=== PATIENT | male | born 1950 | race Caucasian/White ===

== ENCOUNTER → 2023-08-17 | Outpatient (CLI) | payer MEDICARE ==
[~2023-08-17] MED LIST: PROHANCE 279.3MG/ML 15ML VIAL As Ordered ONE; PROHANCE 279.3MG/ML 5ML VIAL As Ordered ONE
== END ==
LOC: M RAD 12:29
PROVIDERS: ATTEND Urology
DX: Z12.5 Encounter for screening for malignant neoplasm of prostate (principal); K44.9 Diaphragmatic hernia without obstruction or gangrene
CPT/HCPCS: 72197; A9576

== ENCOUNTER 2024-05-04 16:51 | Inpatient (IN) | payer MEDICARE ==
[~2024-05-04] VITALS: Ht 167.6 cm; Wt 78.4 kg
[2024-05-04] MEDS ORDERED: ECOT81TA5 PO (17:01)
[2024-05-04] MEDS ORDERED: OMEP40CA4 PO (17:01)
[2024-05-04] MEDS ORDERED: AMLO1TAB24 PO (17:02)
[2024-05-04] MEDS ORDERED: ATOR40TA75 PO (17:03)
[2024-05-04] MEDS ORDERED: FINA5TAB2 PO (17:03)
[2024-05-04] MEDS ORDERED: LOSA100T46 PO (17:05)
[2024-05-04] MEDS ORDERED: IBUP-1022 PO (17:05)
[2024-05-04] MEDS ORDERED: FLUT1INH2 INH (17:06)
[2024-05-04] MEDS ORDERED: ALBU2.5V10 NEB (17:07)
[2024-05-04] MEDS ORDERED: ISOVUE-370 76% 100ML VIAL As Ordered ONE (17:40)
[2024-05-04 17:50] LABS: VENOUS HCO3 21.7 MMOL/L (23.0-27.0); VENOUS PARTIAL PRESSURE O2 68.8 mmHg (30.0-50.0); VENOUS PH 7.423 UNITS (7.330-7.430); VENOUS STANDARD HCO3 22.7 MMOL/L; VENOUS TOTAL CO2 22.8 MMOL/L (24.0-28.0)
[2024-05-04 17:54] LABS: BASO # 0.1 10^3/uL (0.0-0.2); BASO % 0.6 % (0.0-1.0); EOS # 0.1 10^3/uL (0.0-0.5); EOS % 0.8 % (0.0-3.0); HEMATOCRIT 35.9 % (42.0-52.0); HEMOGLOBIN 12.7 g/dl (13.5-17.5); LYMPH # 2.2 10^3/uL (1.5-5.0); LYMPH % 22.4 % (24.0-44.0); MEAN CORPUSCULAR HEMOGLOBIN 31.3 pg (27.0-33.0); MEAN CORPUSCULAR HGB CONC 35.4 g/dl (32.0-36.5); MEAN CORPUSCULAR VOLUME 88.4 fl (80.0-96.0); MONO # 0.9 10^3/uL (0.0-0.8); MONO % 8.5 % (2.0-8.0); NEUTROPHILS # 6.3 10^3/uL (1.5-8.5); NEUTROPHILS % 62.9 % (36.0-66.0); PLATELET COUNT, AUTOMATED 254 10^3/uL (150-450); RED BLOOD COUNT 4.06 10^6/uL (4.30-6.10)
[2024-05-04 18:06] LABS: INR 0.96; PROTHROMBIN TIME 13.1 SECONDS (12.5-14.5)
[2024-05-04 18:21] LABS: ALKALINE PHOSPHATASE 207 U/L (40-129); ALT/SGPT 64 U/L (7.0-40); AST/SGOT 77 U/L (<34); BILIRUBIN,DIRECT 0.2 MG/DL (<0.4); BILIRUBIN,TOTAL 0.5 MG/DL (0.3-1.2); BLOOD UREA NITROGEN 26 MG/DL (9-23); CALCIUM LEVEL 10.5 MG/DL (8.3-10.6); CARBON DIOXIDE LEVEL 25 MMOL/L (20-31); CHLORIDE LEVEL 101 MMOL/L (98-107); CREATININE FOR GFR 1.08 MG/DL (0.70-1.30); GLOMERULAR FILTRATION RATE > 60.0 (>42); GLUCOSE, FASTING 257 MG/DL (74-106); POTASSIUM SERUM 5.3 MMOL/L (3.5-5.1); SODIUM LEVEL 134 MMOL/L (136-145); TOTAL PROTEIN 6.5 G/DL (5.7-8.2)
[2024-05-04 18:23] LABS: THYROID STIMULATING HORMONE 2.066 uIU/ML (0.55-4.78); THYROXINE (T4) 8.2 UG/DL (4.5-10.9)
[2024-05-04 18:28] LABS: PROCALCITONIN 0.62 ng/ml
[2024-05-04] MEDS: cefTRIAXone SOD 1 GM in DEXTROSE 5% (D5W) ADV/MINI-BAG 50 ML IV ONE (19:00)
[2024-05-04] MEDS ORDERED: THERTAB52 PO (20:42)
[2024-05-04] MEDS ORDERED: MAGN500T8 PO (20:42)
[2024-05-04] MEDS ORDERED: ASCO500T PO (20:42)
[2024-05-04] MEDS ORDERED: VITA200021 PO (20:42)
[2024-05-04] MEDS ORDERED: ALBU8.5H INH (20:42)
[2024-05-04] MEDS ORDERED: HOME MED LIST COMPLETE! XX SCH (20:45)
[2024-05-04] MEDS: DOXYCYCLINE HYCLATE 100 MG in DEXTROSE 5% (D5W) MINI-BAG PLU 100 ML IV ONE (20:53)
[2024-05-04] MEDS ORDERED: MOM 30ML SUSPENSION UDC PO PRN (22:05)
[2024-05-04] MEDS ORDERED: ACETAMINOPHEN 325 MG TAB PO PRN (22:05)
[2024-05-04] MEDS ORDERED: MAALOX 30 ML SUSP *UDC PO PRN (22:05)
[2024-05-04] MEDS: D5W/LR 1,000 ML IV ONE (23:00)
[2024-05-05] VITALS (7 sets, daily range): BP systolic 137–171; BP diastolic 63–83; TEMP 98–98.5; O2SAT 87–97
[2024-05-05 05:47] LABS: HEMATOCRIT 34.1 % (42.0-52.0); HEMOGLOBIN 11.5 g/dl (13.5-17.5); MEAN CORPUSCULAR HEMOGLOBIN 30.3 pg (27.0-33.0); MEAN CORPUSCULAR HGB CONC 33.7 g/dl (32.0-36.5); PLATELET COUNT, AUTOMATED 225 10^3/uL (150-450); RED BLOOD COUNT 3.79 10^6/uL (4.30-6.10); WHITE BLOOD COUNT 8.9 10^3/uL (4.0-10.0)
[2024-05-05 06:18] LABS: PROCALCITONIN 0.54 ng/ml
[2024-05-05 06:21] LABS: ALBUMIN 2.7 G/DL (3.2-5.2); ALKALINE PHOSPHATASE 187 U/L (40-129); ALT/SGPT 58 U/L (7.0-40); AST/SGOT 74 U/L (<34); BILIRUBIN,TOTAL 0.4 MG/DL (0.3-1.2); BLOOD UREA NITROGEN 19 MG/DL (9-23); CALCIUM LEVEL 9.9 MG/DL (8.3-10.6); CARBON DIOXIDE LEVEL 27 MMOL/L (20-31); CHLORIDE LEVEL 103 MMOL/L (98-107); CREATININE FOR GFR 0.96 MG/DL (0.70-1.30); GLOMERULAR FILTRATION RATE > 60.0 (>42); GLUCOSE, FASTING 136 MG/DL (74-106); POTASSIUM SERUM 4.3 MMOL/L (3.5-5.1); SODIUM LEVEL 137 MMOL/L (136-145); TOTAL PROTEIN 5.8 G/DL (5.7-8.2)
[2024-05-05] MEDS ORDERED: oxyCODONE 5MG TAB PO PRN ×2 (08:20→17:05)
[2024-05-05] MEDS: cefTRIAXone SOD 2 GM in DEXTROSE 5% (D5W) ADV/MINI-BAG 50 ML IV SCH (08:46)
[2024-05-05] MEDS: LIDOCAINE 5% (LIDODERM) PATCH TD SCH (08:47)
[2024-05-05] MEDS: DICLOFENAC EPOLAMINE 1.3% PATCH TOP SCH (08:48)
[2024-05-05] MEDS: ACETAMINOPHEN 325 MG TAB PO PRN (09:04)
[2024-05-05] MEDS: DOXYCYCLINE HYCLATE 100 MG in DEXTROSE 5% (D5W) MINI-BAG PLU 100 ML IV SCH (09:31)
[2024-05-05] MEDS ORDERED: LIDOCAINE 2% 100MG/5ML SDV (FOR ANES.) As Ordered ONE (14:41)
[2024-05-05] MEDS ORDERED: propofoL 200 MG/20 ML VIAL As Ordered ONE (14:41)
[2024-05-05] MEDS ORDERED: ROCURONIUM BROMIDE 50MG/5ML VIAL As Ordered ONE (14:45)
[2024-05-05] MEDS ORDERED: ONDANSETRON 4MG 2ML VIAL As Ordered ONE (14:45)
[2024-05-05] MEDS ORDERED: SUGAMMADEX SODIUM 500 MG/5 ML VIAL (BRIDION) As Ordered ONE (14:45)
[2024-05-05] MEDS ORDERED: fentaNYL 100 MCG/2 ML INJECTION As Ordered ONE (14:50)
[2024-05-05] MEDS: LIDOCAINE 1% SDV 30ML VIAL As Ordered ONE (15:25)
[2024-05-05] MEDS: LIDOCAINE 4% TOPICAL SOLN 50 ML BTL As Ordered ONE (15:25)
[2024-05-05] MEDS: THROMBIN 20,000 UNITS KIT As Ordered ONE (15:25)
[2024-05-05] MEDS: LIDOCAINE VISCOUS 2% SOLN 15ML UDC As Ordered ONE (15:25)
[2024-05-05] MEDS: CETACAINE SPRAY 5GM As Ordered ONE (15:50)
[2024-05-05] MEDS: THROMBIN 5,000 UNITS VIAL As Ordered ONE (16:30)
[2024-05-05] MEDS: EPINEPHrine 1MG/10ML SYRINGE 1.5IN As Ordered ONE (16:30)
[2024-05-05] MEDS: LEVALBUTEROL 1.25MG 0.5ML CONCENTRATE NEB INH ONE (17:05)
[2024-05-05] MEDS ORDERED: ONDANSETRON 4MG 2ML VIAL IV PRN (17:05)
[2024-05-05] MEDS ORDERED: fentaNYL 100 MCG/2 ML INJECTION IV PRN (17:05)
[2024-05-05] MEDS: IPRATROPIUM 0.5MG/ALBUTEROL 2.5MG INH SOL UD 3ML (DUONEB) NEB ONE (17:55)
[2024-05-05] MEDS ORDERED: PROHANCE 279.3MG/ML 15ML VIAL As Ordered ONE (19:24)
[2024-05-05] MEDS ORDERED: ALBUTEROL 90 MCG/ACT 8GM HFA INHALER INH PRN (20:25)
[2024-05-05] MEDS: ADVAIR HFA 115/21MCG INHALER INH SCH (20:58)
[2024-05-05] MEDS: ASPIRIN 81MG ENTERIC TABLET PO SCH (21:26)
[2024-05-05] MEDS: DOXYCYCLINE HYCLATE 100MG TABLET PO SCH (21:26)
[2024-05-05] MEDS: ATORVASTATIN 20 MG TAB PO SCH (21:26)
[2024-05-05] MEDS: amLODIPine 5 MG TAB PO SCH (21:29)
[2024-05-05] MEDS: KETOROLAC 30 MG/ML 1ML VIAL IV PRN (21:39)
[2024-05-06 04:36] VITALS: BP 150/58; TEMP 97.5; O2SAT 95
[2024-05-06 06:03] LABS: HEMATOCRIT 33.9 % (42.0-52.0); HEMOGLOBIN 11.6 g/dl (13.5-17.5); MEAN CORPUSCULAR HEMOGLOBIN 30.8 pg (27.0-33.0); MEAN CORPUSCULAR HGB CONC 34.2 g/dl (32.0-36.5); MEAN CORPUSCULAR VOLUME 89.9 fl (80.0-96.0); PLATELET COUNT, AUTOMATED 236 10^3/uL (150-450); RED BLOOD COUNT 3.77 10^6/uL (4.30-6.10); WHITE BLOOD COUNT 11.7 10^3/uL (4.0-10.0)
[2024-05-06 06:30] LABS: ALBUMIN 2.8 G/DL (3.2-5.2); ALKALINE PHOSPHATASE 189 U/L (40-129); ALT/SGPT 54 U/L (7.0-40); AST/SGOT 64 U/L (<34); BILIRUBIN,TOTAL 0.5 MG/DL (0.3-1.2); BLOOD UREA NITROGEN 28 MG/DL (9-23); CALCIUM LEVEL 10.3 MG/DL (8.3-10.6); CARBON DIOXIDE LEVEL 25 MMOL/L (20-31); CHLORIDE LEVEL 102 MMOL/L (98-107); CREATININE FOR GFR 1.18 MG/DL (0.70-1.30); GLOMERULAR FILTRATION RATE > 60.0 (>42); GLUCOSE, FASTING 191 MG/DL (74-106); MAGNESIUM LEVEL 1.7 MG/DL (1.8-2.4); SODIUM LEVEL 135 MMOL/L (136-145)
[2024-05-06] MEDS ORDERED: DEXTROSE 50% 50ML SYRINGE IV PRN (07:10)
[2024-05-06] MEDS ORDERED: GLUCOSE 4 GM CHEW PO PRN (07:10)
[2024-05-06] MEDS ORDERED: GLUCAGON INJ 1MG VIAL SC PRN (07:10)
[2024-05-06 08:02] VITALS: BP 124/64; TEMP 98.1; O2SAT 98
[2024-05-06] MEDS: VITAMIN D 1,000 INTERNATIONAL UNITS TABLET PO SCH (08:11)
[2024-05-06 08:12] VITALS: BP 124/64
[2024-05-06] MEDS: LOSARTAN 50MG TABLET PO SCH (08:12)
[2024-05-06] MEDS: MULTIVITAMINS/MINERALS THERAP 1 TAB PO SCH (08:13)
[2024-05-06] MEDS: ASCORBIC ACID 500 MG TAB PO SCH (08:13)
[2024-05-06] MEDS: OMEPRAZOLE 20MG CAP PO SCH (08:13)
[2024-05-06] MEDS: FINASTERIDE 5MG TAB PO SCH (08:13)
[2024-05-06] MEDS: CEFDINIR 300 MG CAP (OMNICEF) PO SCH (08:13)
[2024-05-06] MEDS: ENOXAPARIN 40MG/0.4ML SYRINGE (J1650 PER 10MG) SC SCH (08:14)
[2024-05-06] MEDS: INSULIN LISPRO (NovoLOG) PER UNIT SC SCH (08:14)
[2024-05-06] MEDS: NS 1,000 ML IV SCH (08:18)
[2024-05-06] MEDS ORDERED: CEFDINIR 300 MG CAP (OMNICEF) PO SCH (09:00)
[2024-05-06] MEDS: FLEET OIL RETENTION ENEMA PR SCH (09:00)
[2024-05-06] MEDS: MAGNESIUM GLUCONATE 500 MG TAB PO SCH (09:42)
[2024-05-06 11:42] LABS: PROCALCITONIN 0.61 ng/ml
[2024-05-06] MEDS: LR 1,000 ML IV ONE (12:41)
[2024-05-06 15:33] VITALS: BP 140/71; TEMP 98.2; O2SAT 97
[2024-05-06] MEDS ORDERED: OXYC-517 PO (16:23)
[2024-05-06] MEDS ORDERED: LIDO5TD TD (16:23)
[2024-05-06] MEDS ORDERED: CEFD300CAP PO (16:23)
[2024-05-06] MEDS ORDERED: DOXY100T PO (16:23)
[2024-05-06] MEDS ORDERED: NARC1SPR NARES (16:30)
[2024-05-06] MEDS ORDERED: INSULIN LISPRO (NovoLOG) PER UNIT SC SCH (21:00)
[2024-05-08] MEDS ORDERED: CELE100C PO (10:45)
== END 2024-05-06 18:00 | disposition home or self-care (01) | DRG 166 ==
LOC: M ED 16:51 → M ED INP 22:04 → M PCU 05-05 03:44
PROVIDERS: ADMIT Student in an Organized Health Care Education/Training Program; ATTEND Student in an Organized Health Care Education/Training Program
PROC: 0BBL4ZX Excision of Left Lung, Percutaneous Endoscopic Approach, Diagnostic (ICD-10-PCS; 2024-05-05)
PROC: BB4BZZZ Ultrasonography of Pleura (ICD-10-PCS; 2024-05-05)
PROC: 07B74ZX Excision of Thorax Lymphatic, Percutaneous Endoscopic Approach, Diagnostic (ICD-10-PCS; principal; 2024-05-05 13:45)
DX: C34.12 Malignant neoplasm of upper lobe, left bronchus or lung (principal); J18.9 Pneumonia, unspecified organism; R04.2 Hemoptysis; C78.7 Secondary malignant neoplasm of liver and intrahepatic bile duct; C79.31 Secondary malignant neoplasm of brain; E87.20 Acidosis, unspecified; E87.1 Hypo-osmolality and hyponatremia; J45.909 Unspecified asthma, uncomplicated; E11.65 Type 2 diabetes mellitus with hyperglycemia; E78.5 Hyperlipidemia, unspecified; K21.9 Gastro-esophageal reflux disease without esophagitis; I10 Essential (primary) hypertension; D64.9 Anemia, unspecified; N40.0 Benign prostatic hyperplasia without lower urinary tract symptoms; Z79.899 Other long term (current) drug therapy; Z79.82 Long term (current) use of aspirin; Z87.891 Personal history of nicotine dependence

== ENCOUNTER 2024-05-21 10:48 | Outpatient (RCR) | payer MEDICARE ==
[~2024-05-21 10:48] MED LIST changes: -LIDOCAINE 1% MDV 20ML VIAL As Ordered ONE; -MIDAZOLAM INJ 2MG/2ML VIAL As Ordered ONE; -NS 1,000 ML IV SCH; -ceFAZolin 2 GM/D5W 50 ML IV BAG As Ordered ONE; -fentaNYL 100 MCG/2 ML INJECTION As Ordered ONE
== END 2024-05-24 ==
LOC: M ONCR 10:48
PROVIDERS: ATTEND General Practice
DX: Z51.0 Encounter for antineoplastic radiation therapy (principal); C34.12 Malignant neoplasm of upper lobe, left bronchus or lung

== ENCOUNTER → 2024-05-21 | Outpatient (CLI) | payer MEDICARE ==
[~2024-05-21] VITALS: Ht 167.6 cm; Wt 78.0 kg
[~2024-05-21] MED LIST changes: +ALBU2.5V10 NEB; +ALBU8.5H INH; +AMLO1TAB24 PO; +ASCO500T PO; +ATOR40TA75 PO; +CEFD300CAP PO; +CELE100C PO; +DOXY100T PO; +ECOT81TA5 PO; +FINA5TAB2 PO; +FLUT1INH2 INH; +IBUP-1022 PO; +LIDO5TD TD; +LIDOCAINE 1% MDV 20ML VIAL As Ordered ONE; +LOSA100T46 PO; +MAGN500T8 PO; +MIDAZOLAM INJ 2MG/2ML VIAL As Ordered ONE; +NARC1SPR NARES; +NS 1,000 ML IV SCH; +OMEP40CA4 PO; +ONDA-282 PO; +OXYC-517 PO; -PROHANCE 279.3MG/ML 15ML VIAL As Ordered ONE; -PROHANCE 279.3MG/ML 5ML VIAL As Ordered ONE; +THERTAB52 PO; +VITA200021 PO; +ceFAZolin 2 GM/D5W 50 ML IV BAG As Ordered ONE; +fentaNYL 100 MCG/2 ML INJECTION As Ordered ONE
[2024-05-21 08:13] VITALS: TEMP 97
[2024-05-21] MEDS: ceFAZolin SOD 2 GM in IV 1 EA IV ONE (08:59)
[2024-05-21 10:35] VITALS: BP 162/78; O2SAT 97
== END ==
LOC: M IRPRO 07:51
PROVIDERS: ATTEND Internal Medicine Hematology & Oncology
DX: C34.90 Malignant neoplasm of unspecified part of unspecified bronchus or lung (principal)
CPT/HCPCS: 36561; 99152; 99153; C1894; J0690; J1642; J2250; J3010

== ENCOUNTER → 2024-06-03 | Outpatient (CLI) | payer MEDICARE, OTHER ==
[~2024-06-03] MED LIST changes: +LIDO30CR18 TOP
== END ==
LOC: M EKG 12:45
PROVIDERS: ATTEND Internal Medicine Hematology & Oncology
DX: R00.2 Palpitations (principal)

== ENCOUNTER 2024-06-09 14:43 | Inpatient (IN) | payer MEDICARE, OTHER ==
[~2024-06-09] VITALS: Ht 170.2 cm; Wt 77.7 kg
[2024-06-09] VITALS (11 sets, daily range): BP systolic 144–181; BP diastolic 71–92; TEMP 97.4–98; O2SAT 97–100
[2024-06-09] MEDS: FILGRASTIM 300MCG 0.5ML SYRINGE **SC ADMINISTRATION ONLY SC ONE (16:21)
[2024-06-09] MEDS: CEFEPIME HCL 2 GM in DEXTROSE 5% (D5W) ADV/MINI-BAG 50 ML IV ONE (16:21)
[2024-06-09] MEDS: PHENAZOPYRIDINE 100 MG TAB PO ONE (16:21)
[2024-06-09] MEDS ORDERED: SODIUM CHLORIDE 0.9% INJ 10 ML SYR IV PRN (16:45)
[2024-06-09] MEDS ORDERED: GLUCAGON INJ 1MG VIAL SC PRN (16:55)
[2024-06-09] MEDS ORDERED: DEXTROSE 50% 50ML SYRINGE IV PRN (16:55)
[2024-06-09] MEDS ORDERED: GLUCOSE 4 GM CHEW PO PRN (16:55)
[2024-06-09] MEDS: oxyCODONE 5MG TAB PO ONE (16:56)
[2024-06-09] MEDS ORDERED: VANCOMYCIN HCL 500 MG in DEXTROSE 5% (D5W) MINI-BAG PLU 100 ML IV SCH (17:05)
[2024-06-09] MEDS ORDERED: oxyCODONE 5MG TAB PO PRN (17:20)
[2024-06-09] MEDS ORDERED: NARC1SPR (17:38)
[2024-06-09] MEDS ORDERED: ONDA-282 PO (17:40)
[2024-06-09] MEDS ORDERED: OXYC-517 PO (17:42)
[2024-06-09] MEDS ORDERED: HOME MED LIST COMPLETE! XX SCH (17:45)
[2024-06-09] MEDS: INSULIN LISPRO (NovoLOG) PER UNIT SC SCH ×2 (17:53→20:54)
[2024-06-09] MEDS ORDERED: ALBUTEROL SULFATE 2.5MG/0.5ML INH NEB SOLN NEB PRN (17:55)
[2024-06-09] MEDS ORDERED: ALBUTEROL 90 MCG/ACT 8GM HFA INHALER INH PRN (17:55)
[2024-06-09] MEDS ORDERED: ONDANSETRON 4MG ORAL DISINTEGRATING TAB PO PRN (17:55)
[2024-06-09] MEDS ORDERED: EMLA CREAM 5GM TUBE (LIDOCAINE/PRILOCAINE) TOP PRN (17:55)
[2024-06-09] MEDS: ADVAIR HFA 115/21MCG INHALER INH SCH (19:47)
[2024-06-09] MEDS ORDERED: VANCOMYCIN 1,250 MG/250 ML IV BAG *LOAD IV ONE (20:00)
[2024-06-09] MEDS: ATORVASTATIN 20 MG TAB PO SCH (21:01)
[2024-06-09] MEDS: ASPIRIN 81MG ENTERIC TABLET PO SCH (21:01)
[2024-06-09] MEDS: SENOKOT S TAB PO SCH (21:01)
[2024-06-09] MEDS: PHENAZOPYRIDINE 100 MG TAB PO SCH (21:01)
[2024-06-09] MEDS: amLODIPine 5 MG TAB PO SCH (21:02)
[2024-06-10] VITALS (8 sets, daily range): BP systolic 136–164; BP diastolic 66–98; TEMP 96.9–98.1; O2SAT 96–99
[2024-06-10] MEDS ORDERED: VANCOMYCIN 1,250 MG/250 ML IV BAG IV SCH ×2 (02:00→12:00)
[2024-06-10] MEDS: CEFEPIME HCL 2 GM in DEXTROSE 5% (D5W) ADV/MINI-BAG 50 ML IV SCH (05:25)
[2024-06-10] MEDS: VANCOMYCIN 1,250 MG/250 ML IV BAG *LOAD IV ONE (06:09)
[2024-06-10 08:36] LABS: BASO % 2.3 % (0.0-1.0); EOS % 2.3 % (0.0-3.0); HEMATOCRIT 22.7 % (42.0-52.0); HEMOGLOBIN 7.7 g/dl (13.5-17.5); LYMPH # 0.4 10^3/uL (1.5-5.0); LYMPH % 81.8 % (24.0-44.0); MEAN CORPUSCULAR HEMOGLOBIN 30.7 pg (27.0-33.0); MEAN CORPUSCULAR HGB CONC 33.9 g/dl (32.0-36.5); MEAN CORPUSCULAR VOLUME 90.4 fl (80.0-96.0); MONO % 4.5 % (2.0-8.0); NEUTROPHILS % 9.1 % (36.0-66.0); RED BLOOD COUNT 2.51 10^6/uL (4.30-6.10)
[2024-06-10 08:40] LABS: WHITE BLOOD COUNT 0.4 10^3/uL (4.0-10.0)
[2024-06-10 08:41] LABS: PLATELET COUNT, AUTOMATED 9 10^3/uL (150-450)
[2024-06-10] MEDS: FILGRASTIM 480 MCG/0.8 ML SYRINGE **SC ADMINISTRATION ONLY SC SCH (09:00)
[2024-06-10 09:05] LABS: ALBUMIN 2.3 G/DL (3.2-5.2); ALKALINE PHOSPHATASE 438 U/L (40-129); ALT/SGPT 82 U/L (7.0-40); AST/SGOT 78 U/L (<34); BILIRUBIN,TOTAL 1.6 MG/DL (0.3-1.2); BLOOD UREA NITROGEN 33 MG/DL (9-23); CALCIUM LEVEL 8.7 MG/DL (8.3-10.6); CARBON DIOXIDE LEVEL 26 MMOL/L (20-31); CHLORIDE LEVEL 101 MMOL/L (98-107); CREATININE FOR GFR 0.98 MG/DL (0.70-1.30); GLOMERULAR FILTRATION RATE > 60.0 (>42); GLUCOSE, FASTING 229 MG/DL (74-106); MAGNESIUM LEVEL 1.6 MG/DL (1.8-2.4); POTASSIUM SERUM 4.4 MMOL/L (3.5-5.1); SODIUM LEVEL 135 MMOL/L (136-145); TOTAL PROTEIN 5.1 G/DL (5.7-8.2)
[2024-06-10] MEDS: OMEPRAZOLE 20MG CAP PO SCH (09:31)
[2024-06-10] MEDS: FINASTERIDE 5MG TAB PO SCH (09:31)
[2024-06-10] MEDS: LOSARTAN 50MG TABLET PO SCH (09:31)
[2024-06-10] MEDS: SODIUM CHLORIDE 0.9% INJ 10 ML SYR IV SCH (09:32)
[2024-06-10] MEDS: MAG SULF 1GM/100ML (MAG RUN) 1 GM in IV 1 EA IV SCH (11:00)
[2024-06-10] MEDS: MAGNESIUM OXIDE 400MG TAB (MAG-OX) PO SCH (12:35)
[2024-06-10] MEDS ORDERED: VANCOMYCIN HCL 750 MG, VIAL MATE ADAPTER 1 EACH in NS 250 ML IV SCH (15:00)
[2024-06-11 04:00] VITALS: BP 153/77; TEMP 97.7; O2SAT 95
[2024-06-11 07:47] LABS: BASO % 2.3 % (0.0-1.0); EOS % 2.3 % (0.0-3.0); LYMPH # 0.4 10^3/uL (1.5-5.0); LYMPH % 79.5 % (24.0-44.0); MEAN CORPUSCULAR HEMOGLOBIN 30.3 pg (27.0-33.0); MEAN CORPUSCULAR HGB CONC 33.3 g/dl (32.0-36.5); MEAN CORPUSCULAR VOLUME 90.9 fl (80.0-96.0); MONO % 6.8 % (2.0-8.0); NEUTROPHILS % 9.1 % (36.0-66.0); RED BLOOD COUNT 2.31 10^6/uL (4.30-6.10)
[2024-06-11 08:07] LABS: ALBUMIN 2.2 G/DL (3.2-5.2); ALKALINE PHOSPHATASE 434 U/L (40-129); ALT/SGPT 68 U/L (7.0-40); AST/SGOT 59 U/L (<34); BILIRUBIN,TOTAL 1.1 MG/DL (0.3-1.2); BLOOD UREA NITROGEN 25 MG/DL (9-23); CALCIUM LEVEL 8.6 MG/DL (8.3-10.6); CARBON DIOXIDE LEVEL 26 MMOL/L (20-31); CHLORIDE LEVEL 100 MMOL/L (98-107); CREATININE FOR GFR 0.91 MG/DL (0.70-1.30); GLOMERULAR FILTRATION RATE > 60.0 (>42); GLUCOSE, FASTING 219 MG/DL (74-106); MAGNESIUM LEVEL 1.8 MG/DL (1.8-2.4); POTASSIUM SERUM 4.3 MMOL/L (3.5-5.1); SODIUM LEVEL 135 MMOL/L (136-145); TOTAL PROTEIN 5.3 G/DL (5.7-8.2)
[2024-06-11 08:08] LABS: PLATELET COUNT, AUTOMATED 10 10^3/uL (150-450); WHITE BLOOD COUNT 0.4 10^3/uL (4.0-10.0)
[2024-06-11 12:00] VITALS: BP 157/81; TEMP 97.9; O2SAT 96
[2024-06-11 19:50] VITALS: BP 156/83; TEMP 97.7; O2SAT 96
[2024-06-11] MEDS: MOM 30ML SUSPENSION UDC PO PRN (21:05)
[2024-06-12] VITALS (16 sets, daily range): BP systolic 121–159; BP diastolic 71–80; TEMP 97.3–97.9; O2SAT 87–98
[2024-06-12 05:55] LABS: BASO % 1.3 % (0.0-1.0); EOS % 1.3 % (0.0-3.0); LYMPH # 0.5 10^3/uL (1.5-5.0); LYMPH % 64.9 % (24.0-44.0); MEAN CORPUSCULAR HEMOGLOBIN 30.5 pg (27.0-33.0); MEAN CORPUSCULAR HGB CONC 33.5 g/dl (32.0-36.5); MEAN CORPUSCULAR VOLUME 91.1 fl (80.0-96.0); MONO # 0.1 10^3/uL (0.0-0.8); MONO % 16.9 % (2.0-8.0); NEUTROPHILS % 10.4 % (36.0-66.0); RED BLOOD COUNT 2.13 10^6/uL (4.30-6.10)
[2024-06-12 05:56] LABS: HEMOGLOBIN 6.5 g/dl (13.5-17.5); NEUTROPHILS # 0.1 10^3/uL (1.5-8.5); PLATELET COUNT, AUTOMATED 7 10^3/uL (150-450); WHITE BLOOD COUNT 0.8 10^3/uL (4.0-10.0)
[2024-06-12 05:57] LABS: HEMATOCRIT 19.4 % (42.0-52.0)
[2024-06-12 06:19] LABS: ALBUMIN 2.2 G/DL (3.2-5.2); ALKALINE PHOSPHATASE 412 U/L (40-129); ALT/SGPT 57 U/L (7.0-40); AST/SGOT 44 U/L (<34); BILIRUBIN,TOTAL 1.1 MG/DL (0.3-1.2); BLOOD UREA NITROGEN 25 MG/DL (9-23); CALCIUM LEVEL 8.4 MG/DL (8.3-10.6); CARBON DIOXIDE LEVEL 27 MMOL/L (20-31); CHLORIDE LEVEL 101 MMOL/L (98-107); CREATININE FOR GFR 1.03 MG/DL (0.70-1.30); GLOMERULAR FILTRATION RATE > 60.0 (>42); GLUCOSE, FASTING 214 MG/DL (74-106); MAGNESIUM LEVEL 1.9 MG/DL (1.8-2.4); POTASSIUM SERUM 4.4 MMOL/L (3.5-5.1); SODIUM LEVEL 137 MMOL/L (136-145); TOTAL PROTEIN 5.2 G/DL (5.7-8.2)
[2024-06-12 20:21] LABS: MEAN CORPUSCULAR HEMOGLOBIN 29.7 pg (27.0-33.0); MEAN CORPUSCULAR HGB CONC 34.1 g/dl (32.0-36.5); MEAN CORPUSCULAR VOLUME 87.1 fl (80.0-96.0); RED BLOOD COUNT 2.86 10^6/uL (4.30-6.10); WHITE BLOOD COUNT 1.2 10^3/uL (4.0-10.0)
[2024-06-12 20:22] LABS: HEMATOCRIT 24.9 % (42.0-52.0); HEMOGLOBIN 8.5 g/dl (13.5-17.5)
[2024-06-12 20:23] LABS: PLATELET COUNT, AUTOMATED 50 10^3/uL (150-450)
[2024-06-12 22:15] LABS: ATYPICAL LYMPH 14 % (0-5); BASOPHILS 1 % (0-1); EOSINOPHILS 3 % (0-3); LYMPHOCYTES 46 % (16-44); METAMYELOCYTES 2 % (0-0); MONOCYTES 9 % (0-5); MYELOCYTES 4 % (0-0); NEUTROPHILS 16 % (28-66); NUCLEATED RED BLOOD CELL 6 % (0-0); PROMYELOCYTES 1 % (0-0)
[2024-06-12 22:18] LABS: ANISOCYTOSIS 1+
[2024-06-12 22:40] LABS: PLATELET ESTIMATE DECREASED (NORMAL)
[2024-06-13 04:10] VITALS: BP 139/69; TEMP 97.9; O2SAT 94
[2024-06-13 05:07] LABS: BASO % 0.6 % (0.0-1.0); EOS % 0.6 % (0.0-3.0); HEMATOCRIT 24.1 % (42.0-52.0); HEMOGLOBIN 8.1 g/dl (13.5-17.5); LYMPH # 0.6 10^3/uL (1.5-5.0); LYMPH % 36.1 % (24.0-44.0); MEAN CORPUSCULAR HEMOGLOBIN 29.3 pg (27.0-33.0); MEAN CORPUSCULAR HGB CONC 33.6 g/dl (32.0-36.5); MEAN CORPUSCULAR VOLUME 87.3 fl (80.0-96.0); MONO # 0.3 10^3/uL (0.0-0.8); MONO % 19.3 % (2.0-8.0); NEUTROPHILS % 35.6 % (36.0-66.0); RED BLOOD COUNT 2.76 10^6/uL (4.30-6.10); WHITE BLOOD COUNT 1.7 10^3/uL (4.0-10.0)
[2024-06-13 05:17] LABS: NEUTROPHILS # 0.6 10^3/uL (1.5-8.5); PLATELET COUNT, AUTOMATED 34 10^3/uL (150-450)
[2024-06-13 05:34] LABS: ALBUMIN 2.2 G/DL (3.2-5.2); ALKALINE PHOSPHATASE 408 U/L (40-129); ALT/SGPT 52 U/L (7.0-40); AST/SGOT 43 U/L (<34); BLOOD UREA NITROGEN 23 MG/DL (9-23); CALCIUM LEVEL 8.4 MG/DL (8.3-10.6); CARBON DIOXIDE LEVEL 24 MMOL/L (20-31); CHLORIDE LEVEL 104 MMOL/L (98-107); CREATININE FOR GFR 0.86 MG/DL (0.70-1.30); GLOMERULAR FILTRATION RATE > 60.0 (>42); GLUCOSE, FASTING 187 MG/DL (74-106); MAGNESIUM LEVEL 1.7 MG/DL (1.8-2.4); POTASSIUM SERUM 4.4 MMOL/L (3.5-5.1); SODIUM LEVEL 137 MMOL/L (136-145)
[2024-06-13] MEDS: MAGNESIUM OXIDE 400MG TAB (MAG-OX) PO ONE (08:25)
[2024-06-13 08:28] VITALS: BP 152/74
== END 2024-06-13 11:15 | disposition home or self-care (01) | DRG 809 ==
LOC: M ED 14:43 → M ED INP 16:21 → M MSPAV 06-10 16:11
PROVIDERS: ADMIT Internal Medicine; ATTEND Internal Medicine
PROC: 30233N1 Transfusion of Nonautologous Red Blood Cells into Peripheral Vein, Percutaneous Approach (ICD-10-PCS; principal; 2024-06-09)
PROC: 30233R1 Transfusion of Nonautologous Platelets into Peripheral Vein, Percutaneous Approach (ICD-10-PCS; 2024-06-09)
DX: D61.810 Antineoplastic chemotherapy induced pancytopenia (principal); C34.02 Malignant neoplasm of left main bronchus; C79.31 Secondary malignant neoplasm of brain; C78.7 Secondary malignant neoplasm of liver and intrahepatic bile duct; E87.1 Hypo-osmolality and hyponatremia; T45.1X5A Adverse effect of antineoplastic and immunosuppressive drugs, initial encounter; E11.9 Type 2 diabetes mellitus without complications; N40.0 Benign prostatic hyperplasia without lower urinary tract symptoms; E78.5 Hyperlipidemia, unspecified; I10 Essential (primary) hypertension; R53.1 Weakness; K21.9 Gastro-esophageal reflux disease without esophagitis; E55.9 Vitamin D deficiency, unspecified; D70.9 Neutropenia, unspecified; R53.83 Other fatigue; K59.09 Other constipation; Z79.82 Long term (current) use of aspirin; Z79.899 Other long term (current) drug therapy; R74.01 Elevation of levels of liver transaminase levels; Z79.84 Long term (current) use of oral hypoglycemic drugs; Z87.891 Personal history of nicotine dependence

== ENCOUNTER → 2024-07-04 | Outpatient (CLI) | payer MEDICARE ==
[~2024-07-04] MED LIST changes: +METF-838; +NARC1SPR
== END ==
LOC: M RAD 11:10
PROVIDERS: ATTEND Physician Assistant
DX: I71.43 Infrarenal abdominal aortic aneurysm, without rupture (principal)

== ENCOUNTER → 2024-07-08 | Outpatient (CLI) | payer MEDICARE | LOC: M ONCM 14:35 | PROVIDERS: ATTEND Dietitian, Registered | DX: Z71.3 Dietary counseling and surveillance (principal); C34.90 Malignant neoplasm of unspecified part of unspecified bronchus or lung; Z68.26 Body mass index [BMI] 26.0-26.9, adult ==

== ENCOUNTER 2024-07-15 20:54 | Inpatient (IN) | payer MEDICARE ==
[~2024-07-15] VITALS: Ht 172.7 cm; Wt 76.2 kg
[~2024-07-15 20:54] MED LIST changes: -METF-838; +METF-838 PO
[2024-07-15] MEDS ORDERED: LORazepam 2 MG/ML 1ML VIAL As Ordered ONE (20:57)
[2024-07-15] MEDS: LORazepam 2 MG/ML 1ML VIAL IV STA (21:04)
[2024-07-15] MEDS: NS (Normal Saline) 0.9% 1,000 ML IV ONE (21:05)
[2024-07-15] MEDS: levETIRAcetam INJection 1,500 MG in D5W 100 ML IV ONE (21:16)
[2024-07-15 21:18] LABS: VENOUS BASE EXCESS -10.4 (-2.0-2.0); VENOUS HCO3 17.8 MMOL/L (23.0-27.0); VENOUS O2 SATURATION 92.5 % (60.0-80.0); VENOUS PARTIAL PRESSURE CO2 49.7 mmHg (38.0-50.0); VENOUS PARTIAL PRESSURE O2 78.3 mmHg (30.0-50.0); VENOUS PH 7.173 UNITS (7.330-7.430); VENOUS STANDARD HCO3 16.1 MMOL/L; VENOUS TOTAL CO2 19.4 MMOL/L (24.0-28.0)
[2024-07-15 21:25] LABS: HEMATOCRIT 30.6 % (42.0-52.0); HEMOGLOBIN 9.9 g/dl (13.5-17.5); MEAN CORPUSCULAR HEMOGLOBIN 30.7 pg (27.0-33.0); MEAN CORPUSCULAR HGB CONC 32.4 g/dl (32.0-36.5); PLATELET COUNT, AUTOMATED 169 10^3/uL (150-450); RED BLOOD COUNT 3.22 10^6/uL (4.30-6.10)
[2024-07-15 21:38] LABS: WHITE BLOOD COUNT 32.2 10^3/uL (4.0-10.0)
[2024-07-15 21:41] LABS: KETONE, URINE AUTO RFX NEGATIVE (NEGATIVE); LEUKOCYTE ESTERASE UR AUTO RFX NEGATIVE (NEGATIVE); NITRITE, URINE AUTO RFX NEGATIVE (NEGATIVE); RBC, URINE AUTO RFX 5 /HPF (0-3); SQUAM EPITHELIAL CELL UR AURFX 0 /HPF (0-6); WBC, URINE AUTO RFX 2 /HPF (0-3)
[2024-07-15 21:46] LABS: AMPHETAMINES LEVEL URINE NEGATIVE (NEGATIVE); BARBITURATES URINE NEGATIVE (NEGATIVE); BENZODIAZEPINES URINE NEGATIVE (NEGATIVE); CANNABINOIDS URINE NEGATIVE (NEGATIVE); COCAINE METABOLITE URINE NEGATIVE (NEGATIVE); METHADONE URINE NEGATIVE (NEGATIVE); OPIATES URINE NEGATIVE (NEGATIVE); PHENCYCLIDINE URINE NEGATIVE (NEGATIVE)
[2024-07-15 21:49] LABS: CK-MB VALUE MASS < 1.0 NG/ML (<3.6); ETHYL ALCOHOL (ETHANOL) < 0.003 % (0.000-0.010); INR 0.99; PARTIAL THROMBOPLASTIN TIME 29.4 SECONDS (24.8-34.2); PROTHROMBIN TIME 13.4 SECONDS (12.5-14.5)
[2024-07-15 21:50] LABS: AMYLASE 82 U/L (30-118)
[2024-07-15 21:51] LABS: ALBUMIN 3.3 G/DL (3.2-5.2); ALKALINE PHOSPHATASE 569 U/L (40-129); ALT/SGPT 31 U/L (7.0-40); AST/SGOT 22 U/L (<34); BILIRUBIN,DIRECT 0.3 MG/DL (<0.4); BILIRUBIN,TOTAL 0.6 MG/DL (0.3-1.2); BLOOD UREA NITROGEN 13 MG/DL (9-23); CALCIUM LEVEL 8.6 MG/DL (8.3-10.6); CARBON DIOXIDE LEVEL 20 MMOL/L (20-31); CHLORIDE LEVEL 98 MMOL/L (98-107); CPK CREATINE PHOSPHOKINASE 25 U/L (46-171); CREATININE FOR GFR 0.81 MG/DL (0.70-1.30); GLOMERULAR FILTRATION RATE > 60.0 (>42); GLUCOSE, FASTING 230 MG/DL (74-106); POTASSIUM SERUM 4.7 MMOL/L (3.5-5.1); SODIUM LEVEL 130 MMOL/L (136-145); TOTAL PROTEIN 6.4 G/DL (5.7-8.2)
[2024-07-15 21:53] LABS: THYROID STIMULATING HORMONE 5.493 uIU/ML (0.55-4.78)
[2024-07-15 21:58] LABS: PROCALCITONIN 0.44 ng/ml
[2024-07-15] MEDS ORDERED: VANCOMYCIN HCL 1,000 MG in IV FLUID PLACE HOLDER 1 EA IV ONE (22:05)
[2024-07-15] MEDS ORDERED: LACTULOSE 20GM/30ML SYRUP UDC PR ONE (22:10)
[2024-07-15] MEDS: PIPERACILLIN/TAZOBACTAM SOD 4.5 GM in DEXTROSE 5% (D5W) ADV/MINI-BAG 50 ML IV ONE (22:34)
[2024-07-15] MEDS: LACTULOSE 20GM/30ML SYRUP UDC PR ONE (22:38)
[2024-07-15] MEDS: VANCOMYCIN HCL 1,000 MG, VIAL MATE ADAPTER 1 EACH in NS 250 ML IV ONE (23:16)
[2024-07-15] MEDS: LACTULOSE 20GM/30ML SYRUP UDC PO ONE (23:16)
[2024-07-16] MEDS ORDERED: MOM 30ML SUSPENSION UDC PO PRN (01:15)
[2024-07-16] MEDS ORDERED: ACETAMINOPHEN 325 MG TAB PO PRN (01:15)
[2024-07-16 01:36] LABS: CK-MB VALUE MASS < 1.0 NG/ML (<3.6); MAGNESIUM LEVEL 1.7 MG/DL (1.8-2.4)
[2024-07-16 01:42] LABS: CPK CREATINE PHOSPHOKINASE 42 U/L (46-171); MB/CK RELATIVE INDEX 2.38 (< OR =4)
[2024-07-16] MEDS ORDERED: DEXTROSE 50% 50ML SYRINGE IV PRN (02:35)
[2024-07-16] MEDS ORDERED: GLUCOSE 4 GM CHEW PO PRN (02:35)
[2024-07-16] MEDS ORDERED: GLUCAGON INJ 1MG VIAL SC PRN (02:35)
[2024-07-16 03:00] VITALS: BP 169/76; TEMP 97.5; O2SAT 94
[2024-07-16] MEDS: PIPERACILLIN/TAZOBACTAM SOD 3.375 GM in DEXTROSE 5% (D5W) ADV/MINI-BAG 50 ML IV SCH (04:30)
[2024-07-16] MEDS: dexAMETHasone 20MG/5ML VIAL IV ONE (04:30)
[2024-07-16] MEDS: MAG SULF 1GM/100ML (MAG RUN) 1 GM in IV 1 EA IV SCH (04:30)
[2024-07-16 04:43] LABS: HEMATOCRIT 26.9 % (42.0-52.0); HEMOGLOBIN 8.8 g/dl (13.5-17.5); MEAN CORPUSCULAR HEMOGLOBIN 29.8 pg (27.0-33.0); MEAN CORPUSCULAR HGB CONC 32.7 g/dl (32.0-36.5); MEAN CORPUSCULAR VOLUME 91.2 fl (80.0-96.0); PLATELET COUNT, AUTOMATED 137 10^3/uL (150-450); RED BLOOD COUNT 2.95 10^6/uL (4.30-6.10); WHITE BLOOD COUNT 28.9 10^3/uL (4.0-10.0)
[2024-07-16 05:20] LABS: ALBUMIN 2.6 G/DL (3.2-5.2); ALKALINE PHOSPHATASE 437 U/L (40-129); ALT/SGPT 23 U/L (7.0-40); AST/SGOT 15 U/L (<34); BILIRUBIN,TOTAL 0.5 MG/DL (0.3-1.2); BLOOD UREA NITROGEN 11 MG/DL (9-23); CALCIUM LEVEL 7.7 MG/DL (8.3-10.6); CARBON DIOXIDE LEVEL 24 MMOL/L (20-31); CHLORIDE LEVEL 101 MMOL/L (98-107); CREATININE FOR GFR 0.78 MG/DL (0.70-1.30); GLOMERULAR FILTRATION RATE > 60.0 (>42); GLUCOSE, FASTING 181 MG/DL (74-106); POTASSIUM SERUM 4.5 MMOL/L (3.5-5.1); SODIUM LEVEL 129 MMOL/L (136-145)
[2024-07-16 07:05] LABS: ANISOCYTOSIS 3+; LYMPHOCYTES 7 % (16-44); METAMYELOCYTES 5 % (0-0); MONOCYTES 7 % (0-5); MYELOCYTES 3 % (0-0); NEUTROPHILS 74 % (28-66); PLATELET ESTIMATE NORMAL (NORMAL)
[2024-07-16] MEDS ORDERED: INSULIN LISPRO (NovoLOG) PER UNIT SC SCH ×2 (07:30→21:00)
[2024-07-16] MEDS ORDERED: LIDO30CR18 TOP (07:41)
[2024-07-16] MEDS ORDERED: D31000TA PO (07:42)
[2024-07-16] MEDS ORDERED: HOME MED LIST COMPLETE! XX SCH (07:45)
[2024-07-16] MEDS ORDERED: ADVAIR HFA 115/21MCG INHALER INH SCH (08:00)
[2024-07-16 08:14] VITALS: BP 151/78; TEMP 97.9; O2SAT 96
[2024-07-16 08:22] LABS: VANCOMYCIN RANDOM 7.2 UG/ML
[2024-07-16] MEDS ORDERED: levETIRAcetam INJection 750 MG in D5W 100 ML IV SCH (09:00)
[2024-07-16] MEDS ORDERED: levETIRAcetam 250MG TABLET (KEPPRA) PO SCH (09:00)
[2024-07-16] MEDS: VANCOMYCIN HCL 1,000 MG, VIAL MATE ADAPTER 1 EACH in NS 250 ML IV SCH (09:11)
[2024-07-16] MEDS: HEPARIN SOD (PORCINE) 5000UNITS/ML 1ML VIAL/SYRINGE SC SCH (09:16)
[2024-07-16] MEDS: NS (Normal Saline) 0.9% 1,000 ML IV SCH (09:18)
[2024-07-16] MEDS: INSULIN LISPRO (NovoLOG) PER UNIT SC SCH ×2 (10:58→20:29)
[2024-07-16] MEDS ORDERED: oxyCODONE 5MG TAB PO PRN (11:10)
[2024-07-16] MEDS ORDERED: ONDANSETRON 4MG ORAL DISINTEGRATING TAB PO PRN (11:10)
[2024-07-16] MEDS ORDERED: PROHANCE 279.3MG/ML 15ML VIAL As Ordered ONE (11:10)
[2024-07-16] MEDS ORDERED: ALBUTEROL SULFATE 2.5MG/0.5ML INH NEB SOLN NEB PRN (11:10)
[2024-07-16] MEDS ORDERED: ALBUTEROL 90 MCG/ACT 8GM HFA INHALER INH PRN (11:10)
[2024-07-16 11:21] LABS: BASO # 0.2 10^3/uL (0.0-0.2); BASO % 0.6 % (0.0-1.0); EOS % 0.1 % (0.0-3.0); LYMPH # 0.7 10^3/uL (1.5-5.0); LYMPH % 2.3 % (24.0-44.0); MONO # 1.7 10^3/uL (0.0-0.8); MONO % 5.9 % (2.0-8.0); NEUTROPHILS % 84.1 % (36.0-66.0)
[2024-07-16 11:49] LABS: SOURCE PERIPHERAL SMEAR
[2024-07-16] MEDS: NS IV SCH (12:26)
[2024-07-16] MEDS: LEVETIRACETAM IV SCH (12:26)
[2024-07-16 13:08] LABS: BLOOD UREA NITROGEN 10 MG/DL (9-23); CALCIUM LEVEL 7.8 MG/DL (8.3-10.6); CARBON DIOXIDE LEVEL 25 MMOL/L (20-31); CHLORIDE LEVEL 99 MMOL/L (98-107); CREATININE FOR GFR 0.77 MG/DL (0.70-1.30); GLOMERULAR FILTRATION RATE > 60.0 (>42); GLUCOSE, FASTING 178 MG/DL (74-106); POTASSIUM SERUM 4.8 MMOL/L (3.5-5.1); SODIUM LEVEL 127 MMOL/L (136-145)
[2024-07-16] MEDS: FINASTERIDE 5MG TAB PO SCH (14:49)
[2024-07-16] MEDS: OMEPRAZOLE 20MG CAP PO SCH (14:49)
[2024-07-16] MEDS: VITAMIN D 1,000 INTERNATIONAL UNITS TABLET PO SCH (14:49)
[2024-07-16 14:53] VITALS: BP 126/65; O2SAT 96
[2024-07-16] MEDS: LOSARTAN 50MG TABLET PO SCH (14:53)
[2024-07-16 15:33] LABS: CORTISOL BASELINE 12.8 UG/DL (4.3-22.4)
[2024-07-16 15:36] LABS: THYROID STIMULATING HORMONE 1.016 uIU/ML (0.55-4.78)
[2024-07-16 15:37] LABS: FREE T4 1.05 NG/DL (0.89-1.76)
[2024-07-16 15:56] LABS: CREATININE,RANDOM URINE 80.3 MG/DL
[2024-07-16 16:07] LABS: BLOOD UREA NITROGEN 11 MG/DL (9-23); CALCIUM LEVEL 7.9 MG/DL (8.3-10.6); CARBON DIOXIDE LEVEL 25 MMOL/L (20-31); CHLORIDE LEVEL 100 MMOL/L (98-107); GLOMERULAR FILTRATION RATE > 60.0 (>42); GLUCOSE, FASTING 163 MG/DL (74-106); POTASSIUM SERUM 4.5 MMOL/L (3.5-5.1); SODIUM LEVEL 129 MMOL/L (136-145)
[2024-07-16 19:51] VITALS: BP 131/60; TEMP 98; O2SAT 96
[2024-07-16] MEDS: ADVAIR HFA 115/21MCG INHALER INH SCH (20:00)
[2024-07-16 20:09] LABS: BLOOD UREA NITROGEN 12 MG/DL (9-23); CALCIUM LEVEL 7.3 MG/DL (8.3-10.6); CARBON DIOXIDE LEVEL 24 MMOL/L (20-31); CHLORIDE LEVEL 100 MMOL/L (98-107); CREATININE FOR GFR 0.79 MG/DL (0.70-1.30); GLOMERULAR FILTRATION RATE > 60.0 (>42); GLUCOSE, FASTING 281 MG/DL (74-106); POTASSIUM SERUM 4.3 MMOL/L (3.5-5.1); SODIUM LEVEL 128 MMOL/L (136-145)
[2024-07-16] MEDS: TOLVAPTAN 7.5 MG HALF-TAB PO ONE (20:29)
[2024-07-16] MEDS: ATORVASTATIN 20 MG TAB PO SCH (20:30)
[2024-07-16] MEDS: amLODIPine 5 MG TAB PO SCH (20:31)
[2024-07-16 23:39] VITALS: BP 128/64; TEMP 97.2; O2SAT 95
[2024-07-16 23:55] LABS: BLOOD UREA NITROGEN 13 MG/DL (9-23); CALCIUM LEVEL 7.9 MG/DL (8.3-10.6); CARBON DIOXIDE LEVEL 25 MMOL/L (20-31); CHLORIDE LEVEL 102 MMOL/L (98-107); CREATININE FOR GFR 0.83 MG/DL (0.70-1.30); GLOMERULAR FILTRATION RATE > 60.0 (>42); GLUCOSE, FASTING 209 MG/DL (74-106); POTASSIUM SERUM 4.2 MMOL/L (3.5-5.1); SODIUM LEVEL 131 MMOL/L (136-145)
[2024-07-17 03:26] VITALS: BP 123/60; TEMP 98.6; O2SAT 96
[2024-07-17 03:55] LABS: BASO # 0.1 10^3/uL (0.0-0.2); BASO % 0.4 % (0.0-1.0); EOS # 0.1 10^3/uL (0.0-0.5); EOS % 0.2 % (0.0-3.0); HEMATOCRIT 24.5 % (42.0-52.0); HEMOGLOBIN 8.2 g/dl (13.5-17.5); LYMPH # 0.9 10^3/uL (1.5-5.0); LYMPH % 3.5 % (24.0-44.0); MEAN CORPUSCULAR HEMOGLOBIN 30.6 pg (27.0-33.0); MEAN CORPUSCULAR HGB CONC 33.5 g/dl (32.0-36.5); MEAN CORPUSCULAR VOLUME 91.4 fl (80.0-96.0); MONO # 1.9 10^3/uL (0.0-0.8); MONO % 7.1 % (2.0-8.0); NEUTROPHILS # 21.1 10^3/uL (1.5-8.5); NEUTROPHILS % 80.9 % (36.0-66.0); PLATELET COUNT, AUTOMATED 159 10^3/uL (150-450); RED BLOOD COUNT 2.68 10^6/uL (4.30-6.10); WHITE BLOOD COUNT 26.1 10^3/uL (4.0-10.0)
[2024-07-17 04:11] LABS: ALBUMIN 2.5 G/DL (3.2-5.2); ALKALINE PHOSPHATASE 402 U/L (40-129); ALT/SGPT 19 U/L (7.0-40); AST/SGOT 14 U/L (<34); BILIRUBIN,TOTAL 0.3 MG/DL (0.3-1.2); BLOOD UREA NITROGEN 11 MG/DL (9-23); CALCIUM LEVEL 7.8 MG/DL (8.3-10.6); CARBON DIOXIDE LEVEL 24 MMOL/L (20-31); CHLORIDE LEVEL 100 MMOL/L (98-107); GLOMERULAR FILTRATION RATE > 60.0 (>42); GLUCOSE, FASTING 172 MG/DL (74-106); MAGNESIUM LEVEL 1.8 MG/DL (1.8-2.4); POTASSIUM SERUM 4.2 MMOL/L (3.5-5.1); SODIUM LEVEL 131 MMOL/L (136-145); TOTAL PROTEIN 5.1 G/DL (5.7-8.2)
[2024-07-17 08:00] VITALS: BP 139/65; TEMP 97.1; O2SAT 95
[2024-07-17 09:31] VITALS: BP 139/65
[2024-07-17] MEDS: INSULIN LISPRO (NovoLOG) PER UNIT SC SCH (09:32)
[2024-07-17] MEDS ORDERED: KEPP1TAB2 PO (10:33)
[2024-07-17] MEDS ORDERED: SODI1TAB6 PO (10:53)
[2024-07-17] MEDS ORDERED: FURO20TA2 PO (10:53)
[2024-07-17 10:58] VITALS: BP 148/65
[2024-07-17] MEDS: SODIUM CHLORIDE 1 GM TAB PO SCH (10:58)
[2024-07-17] MEDS: FUROSEMIDE 20 MG TAB PO SCH (10:59)
== END 2024-07-17 12:21 | disposition home or self-care (01) | DRG 101 ==
LOC: M ED 20:54 → EDBD 20:54 → M ED INP 07-16 01:15 → M PCU 07-16 02:51
PROVIDERS: ADMIT Student in an Organized Health Care Education/Training Program; ATTEND Internal Medicine
DX: G40.901 Epilepsy, unspecified, not intractable, with status epilepticus (principal); C79.31 Secondary malignant neoplasm of brain; E87.1 Hypo-osmolality and hyponatremia; C34.02 Malignant neoplasm of left main bronchus; C78.7 Secondary malignant neoplasm of liver and intrahepatic bile duct; E72.20 Disorder of urea cycle metabolism, unspecified; E11.9 Type 2 diabetes mellitus without complications; I10 Essential (primary) hypertension; E78.5 Hyperlipidemia, unspecified; K21.9 Gastro-esophageal reflux disease without esophagitis; E55.9 Vitamin D deficiency, unspecified; Z79.84 Long term (current) use of oral hypoglycemic drugs; K59.09 Other constipation; E83.42 Hypomagnesemia; N40.0 Benign prostatic hyperplasia without lower urinary tract symptoms; D72.829 Elevated white blood cell count, unspecified; D64.9 Anemia, unspecified; Z79.899 Other long term (current) drug therapy; Z92.21 Personal history of antineoplastic chemotherapy; Z92.3 Personal history of irradiation; Z87.891 Personal history of nicotine dependence; Z88.8 Allergy status to other drugs, medicaments and biological substances

== ENCOUNTER → 2024-07-18 | Outpatient (REF) | payer MEDICARE ==
[~2024-07-18] MED LIST changes: +D31000TA PO; +FURO20TA2 PO; +KEPP1TAB2 PO; +SODI1TAB6 PO
[2024-07-18 11:09] LABS: HEMATOCRIT 26.9 % (42.0-52.0); MEAN CORPUSCULAR HEMOGLOBIN 30.8 pg (27.0-33.0); MEAN CORPUSCULAR HGB CONC 33.5 g/dl (32.0-36.5); MEAN CORPUSCULAR VOLUME 92.1 fl (80.0-96.0); PLATELET COUNT, AUTOMATED 178 10^3/uL (150-450); RED BLOOD COUNT 2.92 10^6/uL (4.30-6.10); WHITE BLOOD COUNT 19.9 10^3/uL (4.0-10.0)
[2024-07-18 11:34] LABS: ALBUMIN 2.8 G/DL (3.2-5.2); ALKALINE PHOSPHATASE 405 U/L (40-129); ALT/SGPT 25 U/L (7.0-40); AST/SGOT 19 U/L (<34); BILIRUBIN,TOTAL 0.5 MG/DL (0.3-1.2); BLOOD UREA NITROGEN 9 MG/DL (9-23); CALCIUM LEVEL 8.1 MG/DL (8.3-10.6); CARBON DIOXIDE LEVEL 25 MMOL/L (20-31); CHLORIDE LEVEL 101 MMOL/L (98-107); CREATININE FOR GFR 0.75 MG/DL (0.70-1.30); GLOMERULAR FILTRATION RATE > 60.0 (>42); GLUCOSE, FASTING 288 MG/DL (74-106); MAGNESIUM LEVEL 1.5 MG/DL (1.8-2.4); POTASSIUM SERUM 4.1 MMOL/L (3.5-5.1); SODIUM LEVEL 133 MMOL/L (136-145); TOTAL PROTEIN 5.6 G/DL (5.7-8.2)
== END ==
LOC: M LAB REF 10:42
PROVIDERS: ATTEND Internal Medicine
DX: E87.1 Hypo-osmolality and hyponatremia (principal); D72.829 Elevated white blood cell count, unspecified

== ENCOUNTER → 2024-08-04 | Outpatient (CLI) | payer MEDICARE ==
[~2024-08-04] MED LIST changes: +ISOVUE-370 76% 100ML VIAL As Ordered ONE
== END ==
LOC: M RAD 10:57
PROVIDERS: ATTEND Internal Medicine Medical Oncology
DX: C34.12 Malignant neoplasm of upper lobe, left bronchus or lung (principal); K80.20 Calculus of gallbladder without cholecystitis without obstruction; K57.30 Diverticulosis of large intestine without perforation or abscess without bleeding; C78.7 Secondary malignant neoplasm of liver and intrahepatic bile duct; K76.89 Other specified diseases of liver; N40.0 Benign prostatic hyperplasia without lower urinary tract symptoms; I70.0 Atherosclerosis of aorta; I25.10 Atherosclerotic heart disease of native coronary artery without angina pectoris; Z95.828 Presence of other vascular implants and grafts

== ENCOUNTER → 2024-08-05 | Outpatient (CLI) | payer MEDICARE ==
[~2024-08-05] MED LIST changes: -ISOVUE-370 76% 100ML VIAL As Ordered ONE
== END ==
LOC: M ONCM 14:49
PROVIDERS: ATTEND Dietitian, Registered
DX: C34.10 Malignant neoplasm of upper lobe, unspecified bronchus or lung (principal); Z68.27 Body mass index [BMI] 27.0-27.9, adult; Z71.3 Dietary counseling and surveillance

== ENCOUNTER → 2024-08-08 | Outpatient (REF) | payer MEDICARE ==
[2024-08-08 12:01] LABS: BLOOD UREA NITROGEN 7 MG/DL (9-23); CREATININE FOR GFR 0.78 MG/DL (0.70-1.30); GLOMERULAR FILTRATION RATE > 60.0 (>42)
== END ==
LOC: M LAB REF 11:21
PROVIDERS: ATTEND Psychiatry & Neurology Neurology
DX: I10 Essential (primary) hypertension (principal)

== ENCOUNTER → 2024-08-21 | Outpatient (CLI) | payer MEDICARE | LOC: M ONCR 13:02 | PROVIDERS: ATTEND General Practice | DX: C79.31 Secondary malignant neoplasm of brain (principal); C34.12 Malignant neoplasm of upper lobe, left bronchus or lung; Z87.891 Personal history of nicotine dependence; Z92.3 Personal history of irradiation; Z92.21 Personal history of antineoplastic chemotherapy; Z79.620 Long term (current) use of immunosuppressive biologic; Z88.8 Allergy status to other drugs, medicaments and biological substances; Z79.84 Long term (current) use of oral hypoglycemic drugs; Z79.899 Other long term (current) drug therapy ==

== ENCOUNTER 2024-09-22 14:39 | Inpatient (IN) | payer MEDICARE ==
[~2024-09-22] VITALS: Ht 167.6 cm; Wt 73.4 kg
[~2024-09-22 14:39] MED LIST changes: +SENN-186 PO
[2024-09-22 18:24] LABS: BASO # 0.1 10^3/uL (0.0-0.2); BASO % 0.4 % (0.0-1.0); EOS % 0.1 % (0.0-3.0); HEMATOCRIT 35.4 % (42.0-52.0); HEMOGLOBIN 11.9 g/dl (13.5-17.5); LYMPH % 4.6 % (24.0-44.0); MEAN CORPUSCULAR HEMOGLOBIN 33.1 pg (27.0-33.0); MEAN CORPUSCULAR HGB CONC 33.6 g/dl (32.0-36.5); MEAN CORPUSCULAR VOLUME 98.3 fl (80.0-96.0); MONO # 1.2 10^3/uL (0.0-0.8); MONO % 5.8 % (2.0-8.0); NEUTROPHILS # 18.3 10^3/uL (1.5-8.5); NEUTROPHILS % 88.2 % (36.0-66.0); PLATELET COUNT, AUTOMATED 239 10^3/uL (150-450); WHITE BLOOD COUNT 20.7 10^3/uL (4.0-10.0)
[2024-09-22 18:44] LABS: ALBUMIN 2.7 G/DL (3.2-5.2); ALKALINE PHOSPHATASE 576 U/L (40-129); ALT/SGPT 148 U/L (7.0-40); AST/SGOT 147 U/L (<34); BILIRUBIN,DIRECT 2.4 MG/DL (<0.4); BILIRUBIN,TOTAL 3.2 MG/DL (0.3-1.2); BLOOD UREA NITROGEN 28 MG/DL (9-23); CARBON DIOXIDE LEVEL 28 MMOL/L (20-31); CHLORIDE LEVEL 97 MMOL/L (98-107); CK-MB VALUE MASS < 1.0 NG/ML (<3.6); CPK CREATINE PHOSPHOKINASE 83 U/L (46-171); CREATININE FOR GFR 0.73 MG/DL (0.70-1.30); GLOMERULAR FILTRATION RATE > 60.0 (>42); GLUCOSE, FASTING 213 MG/DL (74-106); POTASSIUM SERUM 4.1 MMOL/L (3.5-5.1); SODIUM LEVEL 133 MMOL/L (136-145); TOTAL PROTEIN 5.6 G/DL (5.7-8.2)
[2024-09-22 19:07] LABS: KETONE, URINE AUTO RFX TRACE mg/dL (NEGATIVE); LEUKOCYTE ESTERASE UR AUTO RFX NEGATIVE (NEGATIVE); MUCUS, URINE RFX SMALL (NEGATIVE); NITRITE, URINE AUTO RFX NEGATIVE (NEGATIVE); RBC, URINE AUTO RFX 0 /HPF (0-3); SQUAM EPITHELIAL CELL UR AURFX 0 /HPF (0-6); WBC, URINE AUTO RFX 1 /HPF (0-3)
[2024-09-22] MEDS: GASTROGRAFIN SOLUTION 30ML PO SCH (19:46)
[2024-09-22] MEDS ORDERED: ISOVUE-370 76% 100ML VIAL As Ordered ONE (21:00)
[2024-09-23] MEDS ORDERED: DEXTROSE 50% 50ML SYRINGE IV PRN (03:40)
[2024-09-23] MEDS ORDERED: GLUCOSE 4 GM CHEW PO PRN (03:40)
[2024-09-23] MEDS: cefTRIAXone SOD 1 GM in DEXTROSE 5% (D5W) ADV/MINI-BAG 50 ML IV ONE (03:40)
[2024-09-23] MEDS ORDERED: GLUCAGON INJ 1MG VIAL SC PRN (03:40)
[2024-09-23] MEDS ORDERED: FURO20TA2 PO (05:15)
[2024-09-23] MEDS ORDERED: LEVE750T5 PO (05:15)
[2024-09-23] MEDS ORDERED: HOME MED LIST COMPLETE! XX SCH (05:15)
[2024-09-23] MEDS ORDERED: SODI1TAB12 PO (05:15)
[2024-09-23] MEDS ORDERED: ALBUTEROL 90 MCG/ACT 8GM HFA INHALER INH PRN (05:55)
[2024-09-23] MEDS: INSULIN LISPRO (NovoLOG) PER UNIT SC SCH ×2 (06:05→17:47)
[2024-09-23] MEDS: NS (Normal Saline) 0.9% 1,000 ML IV SCH (06:43)
[2024-09-23 08:50] VITALS: BP 178/83; TEMP 98.5; O2SAT 96
[2024-09-23] MEDS ORDERED: FUROSEMIDE 20 MG TAB PO SCH (09:00)
[2024-09-23] MEDS ORDERED: LOSARTAN 50MG TABLET PO SCH (09:00)
[2024-09-23] MEDS ORDERED: ENOXAPARIN 40MG/0.4ML SYRINGE (J1650 PER 10MG) SC SCH (09:00)
[2024-09-23] MEDS: FINASTERIDE 5MG TAB PO SCH (09:06)
[2024-09-23] MEDS: OMEPRAZOLE 20MG CAP PO SCH (09:06)
[2024-09-23] MEDS: levETIRAcetam 250MG TABLET (KEPPRA) PO SCH (09:06)
[2024-09-23] MEDS: VITAMIN D 1,000 INTERNATIONAL UNITS TABLET PO SCH (09:06)
[2024-09-23] MEDS: DOCUSATE SODIUM 100MG CAPSULE PO SCH (09:06)
[2024-09-23] MEDS: **hydrALAZINE HCL** 25 MG TAB PO ONE (09:06)
[2024-09-23 09:36] LABS: IONIZED CALCIUM 4.4 MG/DL (4.5-5.3)
[2024-09-23 09:42] LABS: BASO # 0.1 10^3/uL (0.0-0.2); BASO % 0.4 % (0.0-1.0); EOS % 0.1 % (0.0-3.0); HEMATOCRIT 35.3 % (42.0-52.0); HEMOGLOBIN 12.2 g/dl (13.5-17.5); LYMPH % 4.6 % (24.0-44.0); MEAN CORPUSCULAR HEMOGLOBIN 33.6 pg (27.0-33.0); MEAN CORPUSCULAR HGB CONC 34.6 g/dl (32.0-36.5); MEAN CORPUSCULAR VOLUME 97.2 fl (80.0-96.0); MONO # 1.3 10^3/uL (0.0-0.8); MONO % 5.8 % (2.0-8.0); NEUTROPHILS # 19.6 10^3/uL (1.5-8.5); NEUTROPHILS % 88.4 % (36.0-66.0); PLATELET COUNT, AUTOMATED 226 10^3/uL (150-450); RED BLOOD COUNT 3.63 10^6/uL (4.30-6.10); WHITE BLOOD COUNT 22.1 10^3/uL (4.0-10.0)
[2024-09-23 09:46] LABS: ERYTHROCYTE SEDIMENTATION RATE 23 mm/hr (0-20)
[2024-09-23 09:56] LABS: INR 0.97; PARTIAL THROMBOPLASTIN TIME 27.5 SECONDS (24.8-34.2); PROTHROMBIN TIME 13.2 SECONDS (12.5-14.5)
[2024-09-23 10:11] LABS: ALBUMIN 2.7 G/DL (3.2-5.2); ALKALINE PHOSPHATASE 582 U/L (40-129); ALT/SGPT 149 U/L (7.0-40); AST/SGOT 152 U/L (<34); BILIRUBIN,TOTAL 3.3 MG/DL (0.3-1.2); BLOOD UREA NITROGEN 23 MG/DL (9-23); C REACTIVE PROTEIN QUANTITATIV 2.18 MG/DL (<1.0); CALCIUM LEVEL 8.8 MG/DL (8.3-10.6); CARBON DIOXIDE LEVEL 27 MMOL/L (20-31); CHLORIDE LEVEL 99 MMOL/L (98-107); CREATININE FOR GFR 0.74 MG/DL (0.70-1.30); GLOMERULAR FILTRATION RATE > 60.0 (>42); GLUCOSE, FASTING 111 MG/DL (74-106); MAGNESIUM LEVEL 1.9 MG/DL (1.8-2.4); POTASSIUM SERUM 4.3 MMOL/L (3.5-5.1); SODIUM LEVEL 135 MMOL/L (136-145); TOTAL PROTEIN 5.6 G/DL (5.7-8.2)
[2024-09-23 10:18] LABS: PROCALCITONIN 1.18 ng/ml
[2024-09-23] MEDS: PIPERACILLIN/TAZOBACTAM SOD 4.5 GM in DEXTROSE 5% (D5W) ADV/MINI-BAG 50 ML IV SCH (11:15)
[2024-09-23] MEDS: ISOSORBIDE MON. (IMDUR) 60MG XR TAB PO ONE (11:15)
[2024-09-23] MEDS: LORazepam 2 MG/ML 1ML VIAL IV ONE (11:16)
[2024-09-23] MEDS: ACETAMINOPHEN 325 MG TAB PO PRN (11:26)
[2024-09-23] MEDS: **hydrALAZINE HCL** 25 MG TAB PO SCH (11:58)
[2024-09-23 12:00] VITALS: BP 156/73; TEMP 97.3; O2SAT 94
[2024-09-23 17:41] VITALS: BP 124/60
[2024-09-23 20:13] VITALS: BP 113/61; TEMP 98.1; O2SAT 96
[2024-09-23] MEDS: MOM 30ML SUSPENSION UDC PO PRN (21:25)
[2024-09-23] MEDS: ATORVASTATIN 20 MG TAB PO SCH (21:25)
[2024-09-23] MEDS: traZODone 50 MG TAB PO SCH (21:26)
[2024-09-23 23:50] VITALS: BP 122/60; TEMP 97.1; O2SAT 96
[2024-09-24] MEDS ORDERED: cefTRIAXone SOD 1 GM in DEXTROSE 5% (D5W) ADV/MINI-BAG 50 ML IV SCH (04:00)
[2024-09-24 04:06] VITALS: BP 144/71; TEMP 97.3; O2SAT 95
[2024-09-24] MEDS: SODIUM CHLORIDE 0.9% INJ 10 ML SYR IV PRN (05:19)
[2024-09-24 06:39] LABS: BASO # 0.1 10^3/uL (0.0-0.2); BASO % 0.4 % (0.0-1.0); EOS # 0.1 10^3/uL (0.0-0.5); EOS % 0.3 % (0.0-3.0); HEMATOCRIT 34.1 % (42.0-52.0); HEMOGLOBIN 11.6 g/dl (13.5-17.5); MEAN CORPUSCULAR HEMOGLOBIN 32.9 pg (27.0-33.0); MEAN CORPUSCULAR VOLUME 96.6 fl (80.0-96.0); MONO # 1.1 10^3/uL (0.0-0.8); MONO % 5.5 % (2.0-8.0); NEUTROPHILS # 16.9 10^3/uL (1.5-8.5); NEUTROPHILS % 88.1 % (36.0-66.0); PLATELET COUNT, AUTOMATED 241 10^3/uL (150-450); RED BLOOD COUNT 3.53 10^6/uL (4.30-6.10); WHITE BLOOD COUNT 19.2 10^3/uL (4.0-10.0)
[2024-09-24 07:06] LABS: ALBUMIN 2.6 G/DL (3.2-5.2); ALKALINE PHOSPHATASE 520 U/L (40-129); ALT/SGPT 179 U/L (7.0-40); AST/SGOT 274 U/L (<34); BILIRUBIN,TOTAL 3.2 MG/DL (0.3-1.2); BLOOD UREA NITROGEN 25 MG/DL (9-23); CALCIUM LEVEL 8.2 MG/DL (8.3-10.6); CARBON DIOXIDE LEVEL 24 MMOL/L (20-31); CHLORIDE LEVEL 100 MMOL/L (98-107); CREATININE FOR GFR 0.99 MG/DL (0.70-1.30); GLOMERULAR FILTRATION RATE > 60.0 (>42); GLUCOSE, FASTING 246 MG/DL (74-106); SODIUM LEVEL 135 MMOL/L (136-145); TOTAL PROTEIN 5.3 G/DL (5.7-8.2)
[2024-09-24 08:09] VITALS: BP 138/67; TEMP 97.4; O2SAT 95
[2024-09-24] MEDS: methylPREDNISolone 125MG 2ML VIAL IV ONE (08:12)
[2024-09-24] MEDS: SODIUM CHLORIDE 0.9% INJ 10 ML SYR IV SCH (08:14)
[2024-09-24 11:50] VITALS: BP 152/71; TEMP 98.3; O2SAT 95
[2024-09-24 16:44] VITALS: BP 137/63; TEMP 99.9; O2SAT 95
[2024-09-24 20:33] VITALS: BP 151/74; TEMP 98.1; O2SAT 95
[2024-09-24] MEDS: RAMELTEON 8 MG TAB (ROZEREM) PO PRN (21:50)
[2024-09-25 04:59] VITALS: BP 126/61; TEMP 99.9; O2SAT 90
[2024-09-25 05:17] LABS: BASO # 0.1 10^3/uL (0.0-0.2); BASO % 0.2 % (0.0-1.0); EOS # 0.1 10^3/uL (0.0-0.5); EOS % 0.2 % (0.0-3.0); HEMATOCRIT 33.4 % (42.0-52.0); HEMOGLOBIN 11.1 g/dl (13.5-17.5); LYMPH % 4.4 % (24.0-44.0); MEAN CORPUSCULAR HEMOGLOBIN 32.5 pg (27.0-33.0); MEAN CORPUSCULAR HGB CONC 33.2 g/dl (32.0-36.5); MEAN CORPUSCULAR VOLUME 97.7 fl (80.0-96.0); MONO # 1.3 10^3/uL (0.0-0.8); MONO % 6.1 % (2.0-8.0); NEUTROPHILS # 19.4 10^3/uL (1.5-8.5); NEUTROPHILS % 88.6 % (36.0-66.0); PLATELET COUNT, AUTOMATED 211 10^3/uL (150-450); RED BLOOD COUNT 3.42 10^6/uL (4.30-6.10); WHITE BLOOD COUNT 21.9 10^3/uL (4.0-10.0)
[2024-09-25 05:59] LABS: ALBUMIN 2.4 G/DL (3.2-5.2); ALKALINE PHOSPHATASE 488 U/L (40-129); ALT/SGPT 187 U/L (7.0-40); AST/SGOT 234 U/L (<34); BLOOD UREA NITROGEN 21 MG/DL (9-23); CALCIUM LEVEL 8.1 MG/DL (8.3-10.6); CARBON DIOXIDE LEVEL 26 MMOL/L (20-31); CHLORIDE LEVEL 99 MMOL/L (98-107); CREATININE FOR GFR 0.96 MG/DL (0.70-1.30); GLOMERULAR FILTRATION RATE > 60.0 (>42); GLUCOSE, FASTING 208 MG/DL (74-106); POTASSIUM SERUM 3.6 MMOL/L (3.5-5.1); SODIUM LEVEL 135 MMOL/L (136-145)
[2024-09-25] MEDS ORDERED: PRED50TA PO (06:51)
[2024-09-25] MEDS ORDERED: PRED20TA PO (06:51)
[2024-09-25] MEDS ORDERED: DEXA4TA PO (06:51)
[2024-09-25] MEDS: dexAMETHasone 4 MG TAB PO SCH (08:41)
[2024-09-25 08:42] VITALS: BP 133/64
[2024-09-25] MEDS: methylPREDNISolone 125MG 2ML VIAL IV SCH (08:42)
[2024-09-25] MEDS ORDERED: SENO8.6T10 PO (12:32)
[2024-09-25] MEDS ORDERED: MOM30SS2 PO (12:32)
[2024-09-25] MEDS ORDERED: AMLO10TA PO (12:50)
== END 2024-09-25 12:52 | disposition home or self-care (01) | DRG 442 ==
LOC: M ED 14:39 → M ED INP 09-23 03:53 → M MS4PR 09-23 08:50
PROVIDERS: ADMIT Student in an Organized Health Care Education/Training Program; ATTEND General Practice
DX: K71.6 Toxic liver disease with hepatitis, not elsewhere classified (principal); E87.1 Hypo-osmolality and hyponatremia; C78.7 Secondary malignant neoplasm of liver and intrahepatic bile duct; C79.31 Secondary malignant neoplasm of brain; C34.90 Malignant neoplasm of unspecified part of unspecified bronchus or lung; R53.1 Weakness; R10.9 Unspecified abdominal pain; E11.9 Type 2 diabetes mellitus without complications; I10 Essential (primary) hypertension; K21.9 Gastro-esophageal reflux disease without esophagitis; R56.9 Unspecified convulsions; I16.0 Hypertensive urgency; Z92.21 Personal history of antineoplastic chemotherapy; Z92.3 Personal history of irradiation; Z87.81 Personal history of (healed) traumatic fracture; E86.0 Dehydration; D72.829 Elevated white blood cell count, unspecified; Z79.899 Other long term (current) drug therapy; Z88.8 Allergy status to other drugs, medicaments and biological substances; J43.9 Emphysema, unspecified

== ENCOUNTER 2024-09-24 09:58 | Outpatient (RCR) | payer MEDICARE ==
[~2024-09-24 09:58] MED LIST changes: +LEVE750T5 PO; +SODI1TAB12 PO
[2024-09-25] MEDS ORDERED: DEXA4TA PO (06:51)
[2024-09-25] MEDS ORDERED: PRED20TA PO (06:51)
[2024-09-25] MEDS ORDERED: PRED50TA57 PO (06:51)
[2024-09-25] MEDS ORDERED: MOM30SS2 PO (12:32)
[2024-09-25] MEDS ORDERED: SENO8.6T10 PO (12:32)
[2024-09-25] MEDS ORDERED: AMLO-751 PO (12:50)
[2024-09-29] MEDS ORDERED: PRED20TA PO (15:19)
[2024-09-29] MEDS ORDERED: SENN1TAB85 PO (15:19)
[2024-09-29] MEDS ORDERED: MILK500C PO (15:19)
[2024-09-29] MEDS ORDERED: PRED50TA57 PO (15:19)
== END 2024-10-01 | disposition expired ==
LOC: M ONCR 09:58
PROVIDERS: ATTEND General Practice
DX: Z51.0 Encounter for antineoplastic radiation therapy (principal); C78.7 Secondary malignant neoplasm of liver and intrahepatic bile duct

== ENCOUNTER 2024-09-29 11:52 | Inpatient (IN) | payer MEDICARE ==
[~2024-09-29] VITALS: Ht 167.6 cm; Wt 79.6 kg
[2024-09-29] VITALS (10 sets, daily range): BP systolic 168–190; BP diastolic 86–100; TEMP 97–97.3; O2SAT 92–97
[~2024-09-29 11:52] MED LIST changes: -MILK500C PO; -SENN1TAB85 PO
[2024-09-29 14:09] LABS: HEMATOCRIT 42.2 % (42.0-52.0); MEAN CORPUSCULAR HEMOGLOBIN 32.9 pg (27.0-33.0); MEAN CORPUSCULAR HGB CONC 33.2 g/dl (32.0-36.5); MEAN CORPUSCULAR VOLUME 99.3 fl (80.0-96.0); PLATELET COUNT, AUTOMATED 439 10^3/uL (150-450); RED BLOOD COUNT 4.25 10^6/uL (4.30-6.10)
[2024-09-29 14:18] LABS: WHITE BLOOD COUNT 34.1 10^3/uL (4.0-10.0)
[2024-09-29 14:20] LABS: INR 1.03; INR 1.07; PROTHROMBIN TIME 13.8 SECONDS (12.5-14.5); PROTHROMBIN TIME 14.2 SECONDS (12.5-14.5)
[2024-09-29 14:31] LABS: ALBUMIN 2.8 G/DL (3.2-5.2); ALKALINE PHOSPHATASE 636 U/L (40-129); ALT/SGPT 291 U/L (7.0-40); AST/SGOT 269 U/L (<34); BILIRUBIN,TOTAL 7.3 MG/DL (0.3-1.2); BLOOD UREA NITROGEN 38 MG/DL (9-23); CALCIUM LEVEL 9.1 MG/DL (8.3-10.6); CARBON DIOXIDE LEVEL 22 MMOL/L (20-31); CHLORIDE LEVEL 100 MMOL/L (98-107); CREATININE FOR GFR 1.06 MG/DL (0.70-1.30); GLOMERULAR FILTRATION RATE > 60.0 (>42); GLUCOSE, FASTING 481 MG/DL (74-106); POTASSIUM SERUM 5.7 MMOL/L (3.5-5.1); SODIUM LEVEL 134 MMOL/L (136-145); TOTAL PROTEIN 5.7 G/DL (5.7-8.2)
[2024-09-29] MEDS ORDERED: GLUCAGON INJ 1MG VIAL SC PRN (15:00)
[2024-09-29] MEDS ORDERED: DEXTROSE 50% 50ML SYRINGE IV PRN (15:00)
[2024-09-29] MEDS ORDERED: HYDROMORPHONE HCL 0.5 MG/ 0.5 ML SYRINGE IV PRN (15:00)
[2024-09-29] MEDS: ALBUTEROL SULFATE 2.5MG/0.5ML INH CONCENTRATE NEB SOLN NEB STA (15:00)
[2024-09-29] MEDS ORDERED: GLUCOSE 4 GM CHEW PO PRN (15:00)
[2024-09-29] MEDS ORDERED: PRED50TA PO (15:19)
[2024-09-29] MEDS ORDERED: SENN1TAB85 PO (15:19)
[2024-09-29] MEDS ORDERED: PRED20TA PO (15:19)
[2024-09-29] MEDS ORDERED: MILK500C PO (15:19)
[2024-09-29] MEDS ORDERED: HOME MED LIST COMPLETE! XX SCH (15:20)
[2024-09-29] MEDS: HumuLIN R (REGULAR) INSULIN (NovoLIN R) **100U/ML** PER UNIT IV STA (15:26)
[2024-09-29] MEDS: FUROSEMIDE 40MG/4ML VIAL IV STA (15:26)
[2024-09-29] MEDS: HYDROMORPHONE HCL 0.5 MG/ 0.5 ML SYRINGE IV PRN (15:27)
[2024-09-29 15:45] LABS: PROCALCITONIN 1.76 ng/ml
[2024-09-29] MEDS ORDERED: ONDANSETRON 4MG 2ML VIAL IV PRN (16:05)
[2024-09-29] MEDS: CALCIUM GLUCONATE 1,000 MG in DEXTROSE 5% (D5W) MINI-BAG PLU 100 ML IV STA (16:34)
[2024-09-29 16:40] LABS: HEPATITIS B SURFACE ANTIGEN NEGATIVE (NEGATIVE)
[2024-09-29] MEDS: HYDROMORPHONE HCL 0.5 MG/ 0.5 ML SYRINGE IV STA (16:47)
[2024-09-29 17:01] LABS: HEPATITIS B CORE ANTIBODY IGM NEGATIVE (NEGATIVE); HEPATITIS C VIRUS ABY INDEX 0.02 INDEX (<0.8)
[2024-09-29] MEDS: cefTRIAXone SOD 1 GM in DEXTROSE 5% (D5W) ADV/MINI-BAG 50 ML IV SCH (17:11)
[2024-09-29] MEDS: FINASTERIDE 5MG TAB PO SCH (17:11)
[2024-09-29] MEDS: INSULIN LISPRO (NovoLOG) PER UNIT SC SCH ×2 (17:11→21:09)
[2024-09-29] MEDS: SODIUM CHLORIDE 1 GM TAB PO SCH (17:51)
[2024-09-29] MEDS: metroNIDAZOLE 500 MG in IV 1 EA IV SCH (18:03)
[2024-09-29] MEDS ORDERED: LABETALOL 100MG/20ML VIAL IV PRN (18:55)
[2024-09-29 20:08] LABS: BLOOD UREA NITROGEN 39 MG/DL (9-23); CALCIUM LEVEL 9.3 MG/DL (8.3-10.6); CARBON DIOXIDE LEVEL 24 MMOL/L (20-31); CHLORIDE LEVEL 96 MMOL/L (98-107); CREATININE FOR GFR 1.14 MG/DL (0.70-1.30); GLOMERULAR FILTRATION RATE > 60.0 (>42); GLUCOSE, FASTING 392 MG/DL (74-106); SODIUM LEVEL 135 MMOL/L (136-145)
[2024-09-29] MEDS: levETIRAcetam 250MG TABLET (KEPPRA) PO SCH (21:08)
[2024-09-29] MEDS: oxyCODONE 5MG TAB PO ONE (22:34)
[2024-09-29 22:57] LABS: MAGNESIUM LEVEL 2.6 MG/DL (1.8-2.4)
[2024-09-30] VITALS (20 sets, daily range): BP systolic 139–162; BP diastolic 63–78; TEMP 97–97.8; O2SAT 86–98
[2024-09-30] MEDS: SODIUM CHLORIDE 0.9% INJ 10 ML SYR IV PRN (05:17)
[2024-09-30 05:38] LABS: HEMATOCRIT 40.8 % (42.0-52.0); HEMOGLOBIN 14.2 g/dl (13.5-17.5); MEAN CORPUSCULAR HGB CONC 34.8 g/dl (32.0-36.5); MEAN CORPUSCULAR VOLUME 97.6 fl (80.0-96.0); RED BLOOD COUNT 4.18 10^6/uL (4.30-6.10)
[2024-09-30 05:40] LABS: PLATELET COUNT, AUTOMATED 320 10^3/uL (150-450); WHITE BLOOD COUNT 43.1 10^3/uL (4.0-10.0)
[2024-09-30 06:19] LABS: ALBUMIN 2.9 G/DL (3.2-5.2); ALKALINE PHOSPHATASE 694 U/L (40-129); ALT/SGPT 879 U/L (7.0-40); AST/SGOT 2821 U/L (<34); BILIRUBIN,TOTAL 7.7 MG/DL (0.3-1.2); BLOOD UREA NITROGEN 39 MG/DL (9-23); CARBON DIOXIDE LEVEL 26 MMOL/L (20-31); CHLORIDE LEVEL 98 MMOL/L (98-107); GLOMERULAR FILTRATION RATE > 60.0 (>42); GLUCOSE, FASTING 279 MG/DL (74-106); MAGNESIUM LEVEL 2.6 MG/DL (1.8-2.4); POTASSIUM SERUM 5.8 MMOL/L (3.5-5.1); SODIUM LEVEL 136 MMOL/L (136-145); TOTAL PROTEIN 5.4 G/DL (5.7-8.2)
[2024-09-30 06:23] LABS: ANISOCYTOSIS 1+; LYMPHOCYTES 4 % (16-44); MONOCYTES 2 % (0-5); NEUTROPHILS 94 % (28-66)
[2024-09-30 06:24] LABS: PLATELET ESTIMATE NORMAL (NORMAL)
[2024-09-30] MEDS: HumuLIN R (REGULAR) INSULIN (NovoLIN R) **100U/ML** PER UNIT IV STA (07:32)
[2024-09-30] MEDS: CALCIUM GLUCONATE 1,000 MG in DEXTROSE 5% (D5W) MINI-BAG PLU 100 ML IV ONE (07:32)
[2024-09-30] MEDS: predniSONE 50 MG TAB PO SCH (08:59)
[2024-09-30] MEDS: OMEPRAZOLE 20MG CAP PO SCH (08:59)
[2024-09-30] MEDS: predniSONE 20 MG TAB PO SCH (08:59)
[2024-09-30] MEDS: PATIROMER SORBITEX CALCIUM 8.4 GM POWDER PACKET (VELTASSA) PO ONE (09:16)
[2024-09-30] MEDS: SODIUM CHLORIDE 0.9% INJ 10 ML SYR IV SCH (10:03)
[2024-09-30] MEDS: ALBUTEROL SULFATE 2.5MG/0.5ML INH CONCENTRATE NEB SOLN NEB ONE (10:27)
[2024-09-30] MEDS ORDERED: ATROPINE SULFATE 1% OPHTH SOLN 2ML BTL SL PRN (16:20)
[2024-09-30] MEDS ORDERED: HYOSCYAMINE SULFATE 0.125 MG SUBL TABLET PO PRN (16:20)
[2024-09-30] MEDS ORDERED: ONDANSETRON 4MG ORAL DISINTEGRATING TAB PO PRN (16:20)
[2024-09-30] MEDS: oxyBUTYnin 5 MG TAB PO PRN (19:42)
[2024-09-30] MEDS: LIDOCAINE 2% 5ML JELLY UROJET TOP PRN (19:43)
[2024-09-30] MEDS: MORPHINE 10MG/0.5ML ORAL CONCENTRATE SOLUTION U/D SL PRN (20:33)
[2024-09-30] MEDS: SIMETHICONE 80MG CHEW TAB PO PRN (21:49)
[2024-10-01] MEDS ORDERED: HYDROMORPHONE HCL 0.5 MG/ 0.5 ML SYRINGE IV PRN ×2 (00:25)
[2024-10-01] MEDS ORDERED: MAALOX 30 ML SUSP *UDC PO PRN (00:25)
[2024-10-01] MEDS: HYDROMORPHONE HCL 0.5 MG/ 0.5 ML SYRINGE IV ONE (00:30)
[2024-10-01] MEDS: LORazepam 1 MG TAB PO PRN (00:43)
[2024-10-01] MEDS: oxyCODONE 5MG TAB PO ONE (01:30)
[2024-10-01] MEDS: ALBUTEROL 90 MCG/ACT 8GM HFA INHALER INH PRN (01:54)
== END 2024-10-01 07:45 | disposition expired | DRG 441 ==
LOC: M PCU 12:59
PROVIDERS: ADMIT Internal Medicine; ATTEND Internal Medicine
DX: K72.90 Hepatic failure, unspecified without coma (principal); K65.9 Peritonitis, unspecified; A41.9 Sepsis, unspecified organism; I16.9 Hypertensive crisis, unspecified; C78.7 Secondary malignant neoplasm of liver and intrahepatic bile duct; C34.90 Malignant neoplasm of unspecified part of unspecified bronchus or lung; E87.1 Hypo-osmolality and hyponatremia; C79.31 Secondary malignant neoplasm of brain; N17.9 Acute kidney failure, unspecified; G93.40 Encephalopathy, unspecified; R74.01 Elevation of levels of liver transaminase levels; K21.9 Gastro-esophageal reflux disease without esophagitis; E11.65 Type 2 diabetes mellitus with hyperglycemia; I10 Essential (primary) hypertension; E87.5 Hyperkalemia; G40.909 Epilepsy, unspecified, not intractable, without status epilepticus; E78.5 Hyperlipidemia, unspecified; Z51.5 Encounter for palliative care; I46.9 Cardiac arrest, cause unspecified

== ENCOUNTER → 2024-09-29 | Outpatient (CLI) | payer MEDICARE ==
[~2024-09-29] MED LIST changes: +AMLO10TA PO; +DEXA4TA PO; +MILK500C PO; +MOM30SS2 PO; +PRED20TA PO; +PRED50TA PO; +SENN1TAB85 PO; +SENO8.6T10 PO
[2024-09-29] MEDS: MORPHINE 2 MG/ML 1ML VIAL IV ONE (11:57)
== END ==
LOC: M ONCR 10:07
PROVIDERS: ATTEND General Practice
DX: K73.2 Chronic active hepatitis, not elsewhere classified (principal)